=== PATIENT | male | born 1945 | race Caucasian/White ===

== ENCOUNTER 2022-01-06 11:09 | Outpatient (CLI) | payer MEDICARE ==
[2022-01-06 12:29] LABS: Hemoglobin 12.8 g/dL (13.5-17.5); Mean Corpuscular HGB CONC 34.1 g/dL (32.0-36.0); Mean Corpuscular Hemoglobin 33.6 pg (27.0-33.0); Mean Corpuscular Volume 98.4 fl (81.2-95.1); Mean Platelet Volume 9.6 fl (7.4-10.4); Platelet Count 221 10x3/uL (150-450); Red Blood Cell (RBC) Count 3.81 10x6/uL (4.32-5.72)
[2022-01-06 12:57] LABS: Anion Gap 14 mmol/L (10-20); BUN (Urea Nitrogen) 13 mg/dL (8.4-25.7); Calc. Creatinine Clearance 0 mL/min (70-130); Carbon Dioxide 25 mmol/L (23-31); Chloride 106 mmol/L (98-107); Potassium 4.6 mmol/L (3.5-5.1); Sodium 140 mmol/L (136-145)
[2022-01-06 12:58] LABS: Calcium 9.2 mg/dL (7.8-10.44); Glucose 102 mg/dL (83-110)
[2022-01-06 13:00] LABS: PTT 25.5 sec (22.0-33.0); Prothrombin Time 11.1 sec (9.5-12.1)
[2022-01-07 00:19] LABS: SARS-CoV-2 PCR by NAA Not Detected (NotDetected)
== END 2022-01-06 11:10 | disposition home or self-care (01) ==
LOC: LABBT 11:09
PROVIDERS: ATTEND Urology
DX: Z01.818 Encounter for other preprocedural examination (principal); N40.1 Benign prostatic hyperplasia with lower urinary tract symptoms; Z20.822 Contact with and (suspected) exposure to COVID-19; R33.8 Other retention of urine
CPT/HCPCS: 80048; 85027; 85610; 85730; 87086; 93005; U0003; U0005; 87077; 93010

== ENCOUNTER 2022-01-09 06:13 | Day surgery (SDC) | payer MEDICARE ==
[2022-01-07 14:44] VITALS: BMI 22.8
[2022-01-09] MEDS ORDERED: fentaNYL Citrate/PF 100 MCG/2 ML SYRINGE ONE (06:33)
[2022-01-09] MEDS ORDERED: Propofol 500 MG/50 ML VIAL ONE (06:33)
[2022-01-09] MEDS ORDERED: B & O ONE (07:26)
[2022-01-09] MEDS ORDERED: Levofloxacin 500 mg/D5W 100 ml Premix Bag ONE (07:36)
[2022-01-09] MEDS ORDERED: Lidocaine 1% (PF) 30 ML VIAL ONE (08:29)
== END 2022-01-09 09:47 | disposition home or self-care (01) ==
LOC: SDC 06:13
PROVIDERS: ATTEND Urology
PROC: 0T7D8DZ Dilation of Urethra with Intraluminal Device, Via Natural or Artificial Opening Endoscopic (ICD-10-PCS; principal; 2022-01-09)
DX: N40.1 Benign prostatic hyperplasia with lower urinary tract symptoms (principal); R33.8 Other retention of urine; Z79.899 Other long term (current) drug therapy; Z91.041 Radiographic dye allergy status
CPT/HCPCS: C9740; L8699; J1956; J2001; J2704

== ENCOUNTER 2022-05-12 08:40 | Outpatient (CLI) | payer MEDICARE, OTHER | END 2022-05-12 08:41 | disposition home or self-care (01) | LOC: SCSMRI 08:40 | PROVIDERS: ATTEND Family Medicine | DX: M54.16 Radiculopathy, lumbar region (principal); M79.662 Pain in left lower leg; M48.061 Spinal stenosis, lumbar region without neurogenic claudication; M48.07 Spinal stenosis, lumbosacral region | CPT/HCPCS: 72148 ==

== ENCOUNTER 2024-05-15 10:56 | Outpatient (CLI) | payer MEDICARE, OTHER ==
[2024-05-15 12:14] LABS: #Basophils 0.05 10x3/uL (0.0-0.2); %Basophils 0.8 % (0.0-1.0); %Lymphocytes 24.6 % (21.0-51.0); %Monocytes 9.7 % (0.0-10.0); %Neutrophils 61.7 % (42.0-75.0); Hematocrit 42.7 % (42.0-52.0); Hemoglobin 14.3 g/dL (14.0-18.0); Mean Corpuscular HGB CONC 33.5 g/dL (32.0-36.0); Mean Corpuscular Hemoglobin 33.9 pg (27.0-31.0); Mean Corpuscular Volume 101.2 fL (78.0-98.0); Mean Platelet Volume 8.9 fL (7.4-10.4); Platelet Count 302 10x3/uL (130-400); RBC Distribution Width 12.2 % (11.5-14.5); Red Blood Cell (RBC) Count 4.22 mill/uL (4.70-6.10)
[2024-05-15 12:27] LABS: PTT 26.9 sec (22.9-36.1); Prothrombin Time 13.6 sec (12.0-14.7)
[2024-05-15 12:32] LABS: Anion Gap 11 mmol/L (10-20); BUN (Urea Nitrogen) 18 mg/dL (8.4-25.7); Calc. Creatinine Clearance 0 mL/min (70-130); Calcium 9.5 mg/dL (7.8-10.44); Carbon Dioxide 28 mmol/L (23-31); Chloride 106 mmol/L (98-107); Estimated GFR 71; Glucose 100 mg/dL (83-110); Potassium 5.1 mmol/L (3.5-5.1); Sodium 140 mmol/L (136-145)
[2024-05-15 12:42] LABS: Bilirubin Negative (Negative); Blood, Urine 1+ (Negative); Clarity Extra Turbid (Clear); Glucose, Urine (Dipstick) Normal (Negative); Ketone, Urine Negative (Negative); Leukocyte 500 Leu/uL (Negative); Nitrite Negative (Negative); Protein, Urine (Dipstick) 50 mg/dL (Neg-Trace); Specific Gravity, Urine 1.021 (1.002-1.036); Squamous Epithelial None Seen HPF (0-3); Urobilinogen Normal mg/dL (Less than 2); WBC/HPF Greater than 50 HPF (0-3); pH, Urine 6.5 (5.0-9.0)
[2024-05-15 12:52] LABS: Bacteria/HPF 1+ HPF (None Seen)
== END 2024-05-15 10:57 | disposition home or self-care (01) ==
LOC: LABBT 10:56
PROVIDERS: ATTEND Urology
DX: Z01.818 Encounter for other preprocedural examination (principal); N40.1 Benign prostatic hyperplasia with lower urinary tract symptoms; R33.8 Other retention of urine
CPT/HCPCS: 80048; 81001; 85025; 85610; 85730; 87077; 87086; 93005; 93010

== ENCOUNTER 2024-05-25 08:43 | Day surgery (SDC) | payer MEDICARE, OTHER ==
[2024-05-15 11:29] VITALS: BMI 24.3
[2024-05-25] MEDS ORDERED: LevoFLOXacin D5W 500 mg (100 mL) BAG ONE (09:36)
[2024-05-25] MEDS ORDERED: PROPOFOL 20 ML ONE (12:09)
[2024-05-25] MEDS ORDERED: Lidocaine 2% PF 5 ML VIAL ONE (12:09)
[2024-05-25] MEDS ORDERED: Dexamethasone 4 mg/ml Vial ONE (12:48)
[2024-05-25] MEDS ORDERED: fentaNYL PF 100 MCG/2 ML SYRINGE ONE (12:48)
[2024-05-25] MEDS ORDERED: Ondansetron PF 4 MG/2 ML Vial ONE (12:48)
[2024-05-25] MEDS ORDERED: cefTRIAXone (ROCEPHIN) 2 GM VIAL ONE (13:03)
[2024-05-25] MEDS ORDERED: Oxybutynin 5 MG TAB ONE (14:59)
[2024-05-25] MEDS ORDERED: Phenazopyridine HCl 100 MG TAB ONE (14:59)
[2024-05-25] MEDS ORDERED: Promethazine HCl 25 MG/ML VIAL ONE (16:00)
== END 2024-05-25 20:00 | disposition home or self-care (01) ==
LOC: SDC 08:43
PROVIDERS: ATTEND Urology
PROC: 0VT08ZZ Resection of Prostate, Via Natural or Artificial Opening Endoscopic (ICD-10-PCS; principal; 2024-05-25)
DX: N40.1 Benign prostatic hyperplasia with lower urinary tract symptoms (principal); R33.9 Retention of urine, unspecified; Z79.899 Other long term (current) drug therapy; Z90.49 Acquired absence of other specified parts of digestive tract; Z98.890 Other specified postprocedural states; Z91.041 Radiographic dye allergy status
CPT/HCPCS: 52601; A4333; J0696; J1100; J1956; J2405; J2550; J2704; 88305